=== PATIENT | male | born 1950 | race Caucasian/White ===

== ENCOUNTER 2016-08-23 06:03 | Inpatient (IN) ==
--- NOTE | 2016-08-23 06:56 | Electrocardiograph Report ---
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: : 1950 Requested By: Carlos Castellon Order Number: [id number] Reading MD: Martin Clifton DO Measurements Intervals [place] Rate: 91 P: 82 WI: 185 QRS: -43 QRSD: 96 T: 6 QT: 370 QTc: 419 Interpretive Statements SINUS RHYTHM MARKED LEFT AXIS DEVIATION [QRS AXIS < -30] PATTERN CONSISTENT WITH PULMONARY DISEASE MINIMAL VOLTAGE CRITERIA FOR LVH, CONSIDER NORMAL VARIANT [MEETS CRITERIA IN ONE OF: R(aVL), S(V1), R(V5), R(V5/V6)+S(V1)] ST DEVIATION AND MODERATE T-WAVE ABNORMALITY, CONSIDER ANTERIOR ISCHEMIA [-0.1+ mV T WAVE IN V3/V4] Electronically Signed On 08-23-2016 6:55:17 EDT by Martin Clifton DO
[2016-08-23] MEDS ORDERED: Aspirin 81 MG TAB.CHEW PO ONE (07:01)
[2016-08-23] MEDS ORDERED: Nitroglycerin 0.4 MG TAB.SUBL SL PRN (07:01)
[2016-08-23 07:02] LABS: BUN/Creatinine Ratio 12 (6-26); Blood Urea Nitrogen 15 mg/dL (8-26); Carbon Dioxide 21 mEq/L (19-29); Chloride 106 mEq/L (98-109); Glucose 136 mg/dL (70-99); Osmolality,Calculated 293 (280-300); Potassium 4.1 mEq/L (3.5-4.5); Sodium 140 mEq/L (136-145); eGFR For African Americans > 60 (> 60); eGFR For Non-African Americans 56 (> 60)
[2016-08-23 07:10] LABS: Basophils # 0.1 K/mcL (0.0-0.2); Basophils % 0.5 %; Eosinophils # 0.1 K/mcL (0.0-0.6); Eosinophils % 0.6 %; Hematocrit 49.5 % (37.5-50.1); Hemoglobin 16.5 g/dL (12.9-16.9); Immature Granulocytes % 0.8 % (0-4); Lymphocytes # 1.1 K/mcL (0.6-4.6); Lymphocytes % 10.9 %; Mean Corpuscular HGB Conc 33.3 g/dL (31.6-35.5); Mean Platelet Volume 10.8 fL (9.4-12.4); Monocytes # 0.7 K/mcL (0.0-1.3); Monocytes % 6.5 %; Platelet Count 230 K/mcL (140-400); Red Blood Count 5.89 M/mcL (4.19-5.50); Red Cell Distribution Width 14.6 % (11.5-14.5); Segmented Neutrophils % 80.7 %
--- NOTE | 2016-08-23 07:12 | Emergency Department Note ---
Disposition Clinical Impression: NSTEMI (non-ST elevated myocardial infarction), Dyspnea Disposition: Admitted As Inpatient Condition: Good Instructions: Myocardial Infarction (GEN), Chest Pain (ED) Referrals: Linda Gupta CNP [Primary Care Provider] - Forms: ED Satisfaction Letter General Adult HPI - General Chief complaint: ED Shortness of Breath/Dyspnea Stated complaint: SOB, CP Time Seen by Provider: 08/23/16 06:53 Source: patient - History of Present Illness Pain Scale: 0 - Related Data Home Medications Medication Instructions Recorded Confirmed Amoxicillin 875 mg PO BID 08/23/16 08/23/16 Ascorbic Acid/Mv,Min Cmb#18 [Ultra 1,000 mg PO DAILY 08/23/16 08/23/16 Potent-C 1,000 mg Tablet] Aspirin 81 mg PO DAILY 08/23/16 08/23/16 Atenolol [Tenormin] 25 mg PO DAILY 08/23/16 08/23/16 Body Detox 1 tab PO DAILY 08/23/16 08/23/16 Candicid Forte 1 tab PO DAILY 08/23/16 08/23/16 Cephalexin [Keflex] 500 mg PO DAILY 08/23/16 08/23/16 Doxazosin [Cardura] 4 mg PO HS 08/23/16 08/23/16 Fluconazole [Diflucan] 100 mg PO BID 08/23/16 08/23/16 Furosemide [Lasix] 20 mg PO DAILY PRN 08/23/16 08/23/16 Glucosamine/D3/Boswellia Letitia 1 each PO DAILY 08/23/16 08/23/16 [Osteo Bi-Flex Tablet] Guaifenesin/Dm/Pseudoephedrine 1 each PO Q4-6H PRN 08/23/16 08/23/16 [Capmist Dm Tablet] Paracid Forte 1 tab PO DAILY 08/23/16 08/23/16 Triamterene/Hydrochlorothiazid 1 each PO DAILY 08/23/16 08/23/16 [Dyazide 37.5-25 Capsule] Allergies Allergy/AdvReac Type Severity Reaction Status Date / Time Cortisone AdvReac See Verified 08/23/16 06:09 Comments Past Medical History - Past Medical History Medical history: Reports: hypertension Psychiatric history: Reports: no psych history - Social History Smoking Status: Never smoker Alcohol use: Reports: none Drug use: Reports: none Physical Exam - General General appearance: alert Course Vital Signs Temperature 96.5 F L 08/23/16 06:04 Pulse Rate 97 08/23/16 06:04 Respiratory Rate 24 08/23/16 06:04 Blood Pressure 96/50 08/23/16 06:04 O2 Sat by Pulse Oximetry 92 08/23/16 06:04 Temperature 96.5 F L 08/23/16 06:04 Pulse Rate 89 08/23/16 08:34 Respiratory Rate 20 08/23/16 08:34 Blood Pressure 144/97 08/23/16 08:34 O2 Sat by Pulse Oximetry 91 08/23/16 08:34 Oxygen Delivery Oxygen Delivery Nasal Cannula Medical Decision Making - Lab Data Result diagrams: 08/23/16 06:44 08/23/16 06:44 Lab Results 08/23/16 08/23/16 08/23/16 Range/Units 06:30 06:30 06:44 WBC 10.1 (4.3-11.1) K/mcL RBC 5.89 H (4.19-5.50) M/mcL Hgb 16.5 (12.9-16.9) g/dL Hct 49.5 (37.5-50.1) % MCV 84.0 (83.0-100.0) fL MCH 28.0 (28.0-33.3) pg MCHC 33.3 (31.6-35.5) g/dL RDW 14.6 H (11.5-14.5) % Plt Count 230 (140-400) K/mcL MPV 10.8 (9.4-12.4) fL Immature Gran % 0.8 (0-4) % Seg Neutrophils % 80.7 % Lymphocytes % 10.9 % Monocytes % 6.5 % Eosinophils % 0.6 % Basophils % 0.5 % Neutrophils # 8.2 (1.6-8.9) K/mcL Lymphocytes # 1.1 (0.6-4.6) K/mcL Monocytes # 0.7 (0.0-1.3) K/mcL Eosinophils # 0.1 (0.0-0.6) K/mcL Basophils # 0.1 (0.0-0.2) K/mcL Platelet Estimate Normal (Normal) PT 11.7 (9.4-12.1) Seconds INR 1.1 APTT 28.8 (26.0-36.0) Seconds Sodium (136-145) mEq/L Potassium (3.5-4.5) mEq/L Chloride (98-109) mEq/L Carbon Dioxide (19-29) mEq/L BUN (8-26) mg/dL Creatinine (0.72-1.25) mg/dL Est GFR ( Amer) (> 60) Est GFR (Non-Af Amer) (> 60) BUN/Creatinine Ratio (6-26) Glucose (70-99) mg/dL Calculated Osmolality (280-300) Lactic Acid (0.5-2.2) mmol/L Calcium (8.6-10.8) mg/dL Troponin I (0-0.03) ng/mL B-Natriuretic Peptide 423 H (0-100) pg/mL 08/23/16 08/23/16 08/23/16 Range/Units 06:44 06:44 07:40 WBC (4.3-11.1) K/mcL RBC (4.19-5.50) M/mcL Hgb (12.9-16.9) g/dL Hct (37.5-50.1) % MCV (83.0-100.0) fL MCH (28.0-33.3) pg MCHC (31.6-35.5) g/dL RDW (11.5-14.5) % Plt Count (140-400) K/mcL MPV (9.4-12.4) fL Immature Gran % (0-4) % Seg Neutrophils % % Lymphocytes % % Monocytes % % Eosinophils % % Basophils % % Neutrophils # (1.6-8.9) K/mcL Lymphocytes # (0.6-4.6) K/mcL Monocytes # (0.0-1.3) K/mcL Eosinophils # (0.0-0.6) K/mcL Basophils # (0.0-0.2) K/mcL Platelet Estimate (Normal) PT (9.4-12.1) Seconds INR APTT (26.0-36.0) Seconds Sodium 140 (136-145) mEq/L Potassium 4.1 (3.5-4.5) mEq/L Chloride 106 (98-109) mEq/L Carbon Dioxide 21 (19-29) mEq/L BUN 15 (8-26) mg/dL Creatinine 1.28 H (0.72-1.25) mg/dL Est GFR ( Amer) > 60 (> 60) Est GFR (Non-Af Amer) 56 L (> 60) BUN/Creatinine Ratio 12 (6-26) Glucose 136 H (70-99) mg/dL Calculated Osmolality 293 (280-300) Lactic Acid 1.7 (0.5-2.2) mmol/L Calcium 10.0 (8.6-10.8) mg/dL Troponin I 0.71 H* (0-0.03) ng/mL B-Natriuretic Peptide (0-100) pg/mL Critical Care Time Critical Care Time: Yes Total Critical Care Time: 45 Attestation: Patient presented with dyspnea and chest discomfort. CTA indicated multiple PEs with telephone described right heart strain by the radiologist. Standard dose heparin, weight-based, ordered. We will discuss whether the patient is a candidate for TPA with the admitting hospitalist. Patient appears in no acute distress on exam. Attestation Statement - Attestation Attestation: I examined this patient and my medical decision-making was reviewed with the COAT REPAIR INSPECTOR/PA/Advanced Practice Nurse/Resident Physician. I agree with the documented findings, disposition and treatment plan as described except to the extent set forth below. [id number] time provided in conjunction with the physician embroidery assistant Didier Kilgore Patient presents with chest discomfort and dyspnea. He was recently treated for pneumonia. He has no previous history of coronary artery disease. EKG reviewed by me. Patient appears comfortable on exam 17:19: Troponin elevated. Patient states he feels dyspneic when not on oxygen supplementation. CTA chest ordered 09:05: resting comfortably without chest pain. He is not hypoxic or visibly dyspneic. He appears in no acute distress. Although he does have evidence of right heart strain per CT chest read and elevated cardiac biomarker , I am going to withhold thrombolytic therapy unless recommended by the admitting hospitalist 09:14: Dr. Sutherland sepsis admission. Recommends weight-based heparin at this time
--- NOTE | 2016-08-23 07:15 | Emergency Department Note ---
Disposition Clinical Impression: NSTEMI (non-ST elevated myocardial infarction), Pulmonary emboli Disposition: Admitted As Inpatient Condition: Fair Instructions: Myocardial Infarction (GEN), Chest Pain (ED) Referrals: Linda Gupta CNP [Primary Care Provider] - Forms: ED Satisfaction Letter Time of Disposition: 08:24 General Adult HPI - General Chief complaint: ED Shortness of Breath/Dyspnea Stated complaint: SOB, CP Time Seen by Provider: 08/23/16 06:53 Source: patient Mode of arrival: private vehicle Limitations: no limitations Nursing Notes Reviewed: Yes Vital Signs Reviewed: Yes - History of Present Illness HPI Narrative: A very pleasant 65-year-old male presents to the emergency department with complaint of shortness of breath and chest pain. Patient states that he has recently been treated over the last 2-3 weeks for multiple episodes of shortness of breath and when she was diagnosed with pneumonia and placed on amoxicillin and given 2 doses of Rocephin. Patient states that at approximately 2 AM this morning he developed left-sided chest pain which she describes as sharp and tight which radiates into his left arm. He denies any nausea or sweating episodes. Currently complains of no chest pain but does describe some significant shortness of breath. He denies any history of any blood clots. He denies any previous cardiac events. Patient does state a history of high blood pressure but denies any elevated cholesterol. He does state that he was a former smoker approximately 40 years ago. He has not started any new medications besides the antibiotics that he was placed on further treatment of his "pneumonia." Patient does note that he has not had a chest x-ray to confirm this diagnosis of pneumonia. He denies any recent fever , chills, nausea, vomiting or abdominal pain. He has not had any dizziness or lightheadedness. He denies any palpitations. Onset (ago): hour(s) (5) Location: chest Radiation: extremity Pain Scale: 0 Consistency: intermittent, now resolved Improves with: nothing Worsens with: nothing Associated symptoms: Reports: chest pain, shortness of breath Treatments Prior to Arrival: none - Related Data Home Medications Medication Instructions Recorded Confirmed Amoxicillin 875 mg PO BID 08/23/16 08/23/16 Ascorbic Acid/Mv,Min Cmb#18 [Ultra 1,000 mg PO DAILY 08/23/16 08/23/16 Potent-C 1,000 mg Tablet] Aspirin 81 mg PO DAILY 08/23/16 08/23/16 Atenolol [Tenormin] 25 mg PO DAILY 08/23/16 08/23/16 Body Detox 1 tab PO DAILY 08/23/16 08/23/16 Candicid Forte 1 tab PO DAILY 08/23/16 08/23/16 Cephalexin [Keflex] 500 mg PO DAILY 08/23/16 08/23/16 Doxazosin [Cardura] 4 mg PO HS 08/23/16 08/23/16 Fluconazole [Diflucan] 100 mg PO BID 08/23/16 08/23/16 Furosemide [Lasix] 20 mg PO DAILY PRN 08/23/16 08/23/16 Glucosamine/D3/Boswellia Letitia 1 each PO DAILY 08/23/16 08/23/16 [Osteo Bi-Flex Tablet] Guaifenesin/Dm/Pseudoephedrine 1 each PO Q4-6H PRN 08/23/16 08/23/16 [Capmist Dm Tablet] Paracid Forte 1 tab PO DAILY 08/23/16 08/23/16 Triamterene/Hydrochlorothiazid 1 each PO DAILY 08/23/16 08/23/16 [Dyazide 37.5-25 Capsule] Allergies Allergy/AdvReac Type Severity Reaction Status Date / Time Cortisone AdvReac See Verified 08/23/16 06:09 Comments All systems ED: reviewed and negative except as stated. Constitutional: Denies: fever, chills Cardiovascular: Reports: chest pain. Denies: palpitations, dyspnea on exertion Respiratory: Reports: dyspnea. Denies: cough, wheezes Gastrointestinal: Denies: abdominal pain, nausea, vomiting Musculoskeletal: Denies: back pain, neck pain Integumentary: Denies: rash, abrasion, lesions Neurological: Denies: headache Psychiatric: Denies: anxiety, depression, suicidal thoughts, homicidal thoughts Past Medical History - Past Medical History Attestation: Yes The following information was validated with the patient. Source: patient, nursing notes reviewed Medical history: Reports: hypertension Psychiatric history: Reports: no psych history - Social History Smoking Status: Never smoker Alcohol use: Reports: none Drug use: Reports: none Physical Exam - General Limitations: no limitations General appearance: alert, in no apparent distress - Head Head exam: atraumatic, normocephalic, normal inspection - Eye Eye exam: Present: normal appearance, PERRL - Neck Neck exam: Present: normal inspection, full ROM, trachea midline - Chest Chest inspection: Present: normal inspection, symmetric chest wall rise - Respiratory Respiratory exam: Present: normal lung sounds bilaterally. Absent: respiratory distress - Cardiovascular Cardiovascular exam: Present: regular rate, normal rhythm, normal heart sounds. Absent: irregular rhythm, systolic murmur, diastolic murmur - Abdominal Exam Abdominal exam: Present: soft, Non-Tender, normal bowel sounds - Extremities Exam Extremities exam: Present: normal inspection, full ROM. Absent: tenderness, pedal edema - Back Exam Back exam: Present: normal inspection, full ROM. Absent: tenderness - Neurological Exam Neurological exam: Present: alert, oriented X3 - Psychiatric Psychiatric exam: Present: normal affect, normal mood - Skin Skin exam: Present: warm, dry, intact, normal color Course - Reevaluation(s) Reevaluation #1: Patient remains chest pain-free at this time. I did shut off the patient's oxygen and his saturation dropped to 86-87% he does not wear home oxygen. I discussed the case with Dr. Lemon after discovering the patient had an elevated troponin of 0.71. Patient is being sent to CAT scan to do a CTA of his chest to rule out any pulmonary embolus. Plan to admit this patient for N STEMI protocol. Patient verbalized understanding and agreement with plan a care pending his results of this CTA. Time: 08:19 Reevaluation #2: Patient remains chest pain-free. He does continue to have some mild dyspnea. CTA of his chest was positive for segmental and subsegmental pulmonary emboli in all lung lobes. EKG remains unchanged. Hospitalist has been paged for admission. Heparin has been ordered. Dr. Lemon spoke with the Hospitalist, Dr. Sutherland. He he accepts the patient for admission, and does not want any additional anticoagulation besides heparin at this time. Time: 09:21 Vital Signs Temperature 96.5 F L 08/23/16 06:04 Pulse Rate 97 08/23/16 06:04 Respiratory Rate 24 08/23/16 06:04 Blood Pressure 96/50 08/23/16 06:04 O2 Sat by Pulse Oximetry 92 08/23/16 06:04 Temperature 96.5 F L 08/23/16 06:04 Pulse Rate 89 08/23/16 08:34 Respiratory Rate 20 08/23/16 08:34 Blood Pressure 144/97 08/23/16 08:34 O2 Sat by Pulse Oximetry 91 08/23/16 08:34 Oxygen Delivery Oxygen Delivery Nasal Cannula Medical Decision Making - Lab Data Lab results reviewed: Yes I reviewed the patient's lab results. Result diagrams: 08/23/16 06:44 08/23/16 06:44 Lab Results 08/23/16 08/23/16 08/23/16 Range/Units 06:30 06:30 06:44 WBC 10.1 (4.3-11.1) K/mcL RBC 5.89 H (4.19-5.50) M/mcL Hgb 16.5 (12.9-16.9) g/dL Hct 49.5 (37.5-50.1) % MCV 84.0 (83.0-100.0) fL MCH 28.0 (28.0-33.3) pg MCHC 33.3 (31.6-35.5) g/dL RDW 14.6 H (11.5-14.5) % Plt Count 230 (140-400) K/mcL MPV 10.8 (9.4-12.4) fL Immature Gran % 0.8 (0-4) % Seg Neutrophils % 80.7 % Lymphocytes % 10.9 % Monocytes % 6.5 % Eosinophils % 0.6 % Basophils % 0.5 % Neutrophils # 8.2 (1.6-8.9) K/mcL Lymphocytes # 1.1 (0.6-4.6) K/mcL Monocytes # 0.7 (0.0-1.3) K/mcL Eosinophils # 0.1 (0.0-0.6) K/mcL Basophils # 0.1 (0.0-0.2) K/mcL Platelet Estimate Normal (Normal) PT 11.7 (9.4-12.1) Seconds INR 1.1 APTT 28.8 (26.0-36.0) Seconds Sodium (136-145) mEq/L Potassium (3.5-4.5) mEq/L Chloride (98-109) mEq/L Carbon Dioxide (19-29) mEq/L BUN (8-26) mg/dL Creatinine (0.72-1.25) mg/dL Est GFR ( Amer) (> 60) Est GFR (Non-Af Amer) (> 60) BUN/Creatinine Ratio (6-26) Glucose (70-99) mg/dL Calculated Osmolality (280-300) Lactic Acid (0.5-2.2) mmol/L Calcium (8.6-10.8) mg/dL Troponin I (0-0.03) ng/mL B-Natriuretic Peptide 423 H (0-100) pg/mL 08/23/16 08/23/16 08/23/16 Range/Units 06:44 06:44 07:40 WBC (4.3-11.1) K/mcL RBC (4.19-5.50) M/mcL Hgb (12.9-16.9) g/dL Hct (37.5-50.1) % MCV (83.0-100.0) fL MCH (28.0-33.3) pg MCHC (31.6-35.5) g/dL RDW (11.5-14.5) % Plt Count (140-400) K/mcL MPV (9.4-12.4) fL Immature Gran % (0-4) % Seg Neutrophils % % Lymphocytes % % Monocytes % % Eosinophils % % Basophils % % Neutrophils # (1.6-8.9) K/mcL Lymphocytes # (0.6-4.6) K/mcL Monocytes # (0.0-1.3) K/mcL Eosinophils # (0.0-0.6) K/mcL Basophils # (0.0-0.2) K/mcL Platelet Estimate (Normal) PT (9.4-12.1) Seconds INR APTT (26.0-36.0) Seconds Sodium 140 (136-145) mEq/L Potassium 4.1 (3.5-4.5) mEq/L Chloride 106 (98-109) mEq/L Carbon Dioxide 21 (19-29) mEq/L BUN 15 (8-26) mg/dL Creatinine 1.28 H (0.72-1.25) mg/dL Est GFR ( Amer) > 60 (> 60) Est GFR (Non-Af Amer) 56 L (> 60) BUN/Creatinine Ratio 12 (6-26) Glucose 136 H (70-99) mg/dL Calculated Osmolality 293 (280-300) Lactic Acid 1.7 (0.5-2.2) mmol/L Calcium 10.0 (8.6-10.8) mg/dL Troponin I 0.71 H* (0-0.03) ng/mL B-Natriuretic Peptide (0-100) pg/mL - Radiology Data Radiology results reviewed: Yes I reviewed the patient's radiology results. - EKG Data EKG #1 EKG attestation: Yes I reviewed and interpreted this EKG. EKG shows normal: sinus rhythm Rate: normal Rhythm: NSR [place]/QRS: normal When compared to previous EKG there are: previous EKG unavailable
[2016-08-23 07:21] LABS: INR 1.1; Prothrombin Time 11.7 Seconds (9.4-12.1)
[2016-08-23 07:23] LABS: Activated Partial Thrombo Time 28.8 Seconds (26.0-36.0)
[2016-08-23 07:42] LABS: Neutrophils # 8.2 K/mcL (1.6-8.9); Platelet Estimate Normal (Normal)
[2016-08-23] MEDS: Heparin 25,000 UNIT/500 ML D5W 25,000 UNIT/500 ML MLS IVC SCH (09:05)
[2016-08-23] MEDS ORDERED: Naloxone 0.4 MG/ML INJ IVP PRN (11:05)
[2016-08-23] MEDS ORDERED: *HR* HYDROcodone/Acet 5/325 mg TABLET PO PRN (11:06)
[2016-08-23] MEDS ORDERED: Acetaminophen 325 MG TABLET PO PRN (11:06)
[2016-08-23] MEDS ORDERED: Ondansetron 4 MG/2 ML VIAL IVP PRN (11:06)
--- NOTE | 2016-08-23 11:24 | Internal Med History&Physical ---
Date of Encounter: 08/23/16 Time of Encounter: 11:00 Assessment and Plan (1) Pulmonary emboli Current visit: Yes Status: Acute 1 patient has been experiencing shortness of breath and chest pain. CTA revealed segmental and subsegmental pulmonary emboli in all lung lobes. EKG indicative of right ventricular heart strain. Patient does have a history of sitting for long hours which could be the provoking factor. Patient initiated on heparin drip in the ER. We will continue with heparin drip 2 troponin elevated 0. 71 suspect related to demand ischemia we will continue to cycle troponins 3 Will obtain cardiac echo 4 upon discharge patient will need to be converted to oral anticoagulants. 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 5 continue cardiac monitoring 6 continue oxygen titrated to maintain SPO2 greater than 92%-weaned off Qualifiers: Pulmonary embolism type: other Chronicity: acute Acute cor pulmonale presence: with acute cor pulmonale Qualified Code(s): I26.09 - Other pulmonary embolism with acute cor pulmonale (2) Elevated troponin Current visit: Yes Status: Acute 1 initial troponin 0.71 suspect related to demand ischemia we will continue cycle troponins 2continue with heparin drip 3 continuous cardiac monitoring (3) Hypertension Current visit: Yes Status: Acute 1 patient has history of hypertension presently controlled we will continue with home medications except for diuretics patient's creatinine slightly elevated at 1.28. We will recheck and resume once back to baseline. Qualifiers: Hypertension type: essential hypertension Qualified Code(s): I10 - Essential (primary) hypertension Internal Medicine - H&P: HPI Chief complaint: SOB Admitted From: Emergency Dept History of present illness: Mr. Barnard is a 65 year old male past medical history of hypertension who presented to the emergency department with implants of increasing shortness of breath as well as chest pain. She has been experiencing shortness of breath off and on since May. He see a physician several times and was recently seen by PCP last week diagnosed with pneumonia and was placed on Keflex. Patient denies any cough sputum production chills nausea vomiting diarrhea sick contacts recent travel. He does admit to low-grade fever which is subjective. Patient was a former smoker quit 40 years ago. He is not on any home oxygen and denies any diagnosis of COPD. He denies any dizziness lightheadedness or palpitations. According to patient approximate 6 AM this morning he developed left-sided chest pain which she described as sharp and tight he states that it did not radiate to his left arm however his left arm became numb. He continued to experience shortness of breath. He states symptoms were aggravated by exertion relieved with rest. He presented to the ER for evaluation. According ER records patient's troponin was 0.71 creatinine was 1.28 lactate 1.7 BNP 423. CTA was obtained which was positive for segmental and subsegmental pulmonary emboli in all lung lobes. Patient was initiated on heparin per ER physician. He has been admitted for further workup and evaluation. Presently patient denies any chest pain he is slightly short of breath with exertion. Lung sounds are clear heart sounds S1-S2 no rubs gallops murmurs clicks are noted. 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 He states that he gets up approximately every 4 hours. He denies any leg pain /swelling. No swelling or tenderness noted to legs bilaterally Homans signs negative. EKG does reveal right ventricular strain Presently patient appears to be hemodynamically stable. I reviewed this case with Dr. Sutherland who agrees with plan. Past Med Surg Social Fam HX - Past Medical History Medical history: hypertension Psychiatric history: no psych history - Social History Smoking Status: Never smoker Smokeless Tobacco Status: No Alcohol use: none Drug use: none - Family History Mother Living Status: Cause of : Lung cancer Hx Family Cancer: Yes Father Living Status: Cause of : Lung cancer Hx Family Cancer: Yes Brother Living Status: Still Living Hx Family Cardiac Disorders: Yes (Heart disease) Hx Family Endocrine Disorder: Yes (Diabetes) Internal Medicine - H&P: Meds Amoxicillin 875 mg PO BID 08/23/16 [History] Ascorbic Acid/Mv,Min Cmb#18 [Ultra Potent-C 1,000 mg Tablet] 1,000 mg PO DAILY 08/23/16 [History] Aspirin 81 mg PO DAILY 08/23/16 [History] Atenolol [Tenormin] 25 mg PO DAILY 08/23/16 [History] Body Detox 1 tab PO DAILY 08/23/16 [History] Candicid Forte 1 tab PO DAILY 08/23/16 [History] Cephalexin [Keflex] 500 mg PO DAILY 08/23/16 [History] Doxazosin [Cardura] 4 mg PO HS 08/23/16 [History] Fluconazole [Diflucan] 100 mg PO BID 08/23/16 [History] Furosemide [Lasix] 20 mg PO DAILY PRN 08/23/16 [History] Glucosamine/D3/Boswellia Letitia [Osteo Bi-Flex Tablet] 1 each PO DAILY 08/23/16 [ History] Guaifenesin/Dm/Pseudoephedrine [Capmist Dm Tablet] 1 each PO Q4-6H PRN 08/23/16 [History] Paracid Forte 1 tab PO DAILY 08/23/16 [History] Triamterene/Hydrochlorothiazid [Dyazide 37.5-25 Capsule] 1 each PO DAILY [History] Allergies Cortisone Adverse Reaction (Verified 08/23/16 06:09) See Comments All Systems PM: A 10-system review of systems was performed and is negative for pertinent findings except as documented above in the HPI. - Constitutional Constitutional: fever(s), weakness - EENT Eyes: no change in vision, no discharge, no pain, no photophobia Nose, mouth and throat: no dysphagia, no nasal discharge, no neck pain, no sore throat - Cardiovascular Cardiovascular ROS IM: chest pain, dyspnea on exertion, no diaphoresis, no dyspnea, no lightheadedness, no palpitations, no syncope - Respiratory Respiratory: dyspnea - Gastrointestinal Gastrointestinal: no abdominal pain, no diarrhea, no hematemesis, no hematochezia, no melena, no nausea, no vomiting - Musculoskeletal Musculoskeletal ROS IM: no numbness, no tingling - Integumentary Integumentary IM: no rash, no unusual bruising - Neurological Neurological ROS: no confusion, no convulsions, no focal weakness, no numbness, no tingling, no tremor(s) - Hematologic/Lymphatic Hematologic/Lymphatic: no easy bruising - Constitutional Vitals: Temp Pulse Resp BP Pulse Ox 97.9 F 87 24 139/71 92 08/23/16 10:29 08/23/16 10:29 08/23/16 10:29 08/23/16 10:29 08/23/16 10:29 General appearance: Present: A&O X 2, morbidly obese - Head Head exam: Present: atraumatic, normocephalic - Eye Eye exam: Present: PERRL, conjuntiva pink, sclera anicteric Pupils: Present: PERRL - Neck Neck exam general surgery: Present: supple, trachea midline. Absent: lymphadenopathy - Respiratory Respiratory exam: Present: CTAB. Absent: accessory muscle use, rales, rhonchi, wheezes - Cardiovascular Cardiovascular exam: Present: RRR, +S1, +S2. Absent: diastolic murmur, gallop, rubs, systolic murmur - GI/Abdominal GI/Abdominal exam: Present: normal bowel sounds, soft, no peritoneal signs. Absent: distended, tenderness - Extremities Exam Extremities exam: Present: warm, radial pulses palpable and symetrical. Absent : calf tenderness, cyanotic, pedal edema - Neurological Exam Neurological exam: Present: CN II-XII intact, oriented X3, no focal deficits. Absent: pronater drift, facial droop, speech deficit - Skin Skin exam: Present: dry, intact Internal Med - H&P Results - Labs CBC & Chem 7: 08/23/16 13:17 08/23/16 06:44 - EKG Data EKG shows normal: sinus rhythm - EKG Data Prior EKG available for review: no EKG comments: 08/23/16 11:27 Left axis deviation with T-wave inversion to 3 aVF V1 V2 V3 as well as clockwise rotation V6. Reviewed this EKG with Dr. Sutherland - Diagnostic Studies Other Images Additional comments: Chest X-Ray 08/23/16 06:09 IMPRESSION: No acute cardiopulmonary disease. D/ / 08/23/2016 07:17:45 Wili Chiang MD / adrienne Interpreting Provider: Wili Chiang MD Chest CTA 08/23/16 07:19 IMPRESSION: Acute segmental and subsegmental pulmonary artery emboli to all lobes. Right heart strain. Fatty liver. RECOMMENDATIONS: Findings were discussed with Dr. Dr. Lemon 8:43 a.m. August 23, 2016 D/ / Bret Harris MD / Bret Harris MD Interpreting Provider: Bret Harris MD
--- NOTE | 2016-08-23 12:22 | Event Note ---
Date of Encounter: 08/23/16 Time of Encounter: 12:19 Patient seen and examined with nurse practitioner. 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 shortness of breath has been progressive to the point for a short of breath arrests so presented to our emergency room for further evaluation. He was found to have Bilateral pulmonary embolism. This is considered a provoked pulmonary embolism. I have advised him to find a different job. Recommend at least 3-month-old anticoagulation unless he does not change his job. This is also considered a submassive pulmonary embolism with elevated troponin and evidence of right heart strain on EKG and CT angiogram. He is now requiring 2 L of oxygen. Will check oxygen requirement prior to discharge. Hemodynamically stable. emu farm worker to see patient to decide on choice of anticoagulants
[2016-08-23 13:56] LABS: Hematocrit 45.5 % (37.5-50.1); Mean Corpuscular Hemoglobin 27.9 pg (28.0-33.3); Mean Corpuscular Volume 84.6 fL (83.0-100.0); Mean Platelet Volume 10.6 fL (9.4-12.4); Platelet Count 233 K/mcL (140-400); Red Blood Count 5.38 M/mcL (4.19-5.50); Red Cell Distribution Width 14.6 % (11.5-14.5)
[2016-08-23 14:01] LABS: INR 1.2; Prothrombin Time 12.8 Seconds (9.4-12.1)
[2016-08-23 14:06] LABS: Activated Partial Thrombo Time 47.6 Seconds (26.0-36.0)
[2016-08-23] MEDS ORDERED: *HR* Heparin 5,000 UNIT/ML VIAL IVP PRN ×2 (15:27)
[2016-08-24 02:35] LABS: Basophils % 0.4 %; Eosinophils # 0.1 K/mcL (0.0-0.6); Eosinophils % 1.1 %; Hematocrit 46.4 % (37.5-50.1); Immature Granulocytes % 0.3 % (0-4); Lymphocytes # 1.4 K/mcL (0.6-4.6); Lymphocytes % 15.3 %; Mean Corpuscular HGB Conc 32.3 g/dL (31.6-35.5); Mean Corpuscular Hemoglobin 27.4 pg (28.0-33.3); Mean Corpuscular Volume 84.7 fL (83.0-100.0); Monocytes # 0.7 K/mcL (0.0-1.3); Monocytes % 7.5 %; Neutrophils # 6.8 K/mcL (1.6-8.9); Platelet Count 248 K/mcL (140-400); Red Blood Count 5.48 M/mcL (4.19-5.50); Red Cell Distribution Width 14.5 % (11.5-14.5); Segmented Neutrophils % 75.4 %
[2016-08-24 02:51] LABS: BUN/Creatinine Ratio 14 (6-26); Blood Urea Nitrogen 17 mg/dL (8-26); Calcium 9.6 mg/dL (8.6-10.8); Carbon Dioxide 23 mEq/L (19-29); Chloride 105 mEq/L (98-109); Glucose 117 mg/dL (70-99); Osmolality,Calculated 293 (280-300); Potassium 3.5 mEq/L (3.5-4.5); Sodium 140 mEq/L (136-145); eGFR For African Americans > 60 (> 60); eGFR For Non-African Americans > 60 (> 60)
[2016-08-24] MEDS: Heparin 25,000 UNIT/500 ML D5W 25,000 UNIT/500 ML MLS IVC SCH ×3 (04:11→22:15)
[2016-08-24] MEDS: Aspirin 81 MG TAB.CHEW PO SCH (08:06)
[2016-08-24] MEDS ORDERED: Famotidine 20 MG TABLET PO SCH (09:00)
--- NOTE | 2016-08-24 11:09 | Internal Med Progress Note ---
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 Continue anticoagulation with IV heparin drip, start Coumadin tonight. Gallardo check for new or oral anticoagulants done, noted to be expensive for patient. Continue supplemental oxygen, home oxygen evaluation prior to discharge. Echocardiogram reviewed, shows preserved ejection fraction, mild left ventricular diastolic dysfunction, biatrial dilation, mild right ventricular dilation. Supportive care. Check bilateral lower extremity venous Dopplers. High risk for complications. Will send hypercoagulation panel- protein C and protein S activity, lupus anticoagulant, anticardiolipin antibodies, factor V Leyden. Patient will need hematology follow-up as outpatient. Qualifiers: Pulmonary embolism type: other Chronicity: acute Acute cor pulmonale presence: without acute cor pulmonale Qualified Code(s): I26.99 - Other pulmonary embolism without acute cor pulmonale (2) Elevated troponin Current Visit: Yes Status: Acute Assessment and plan: Likely secondary to right ventricular strain due to bilateral pulmonary embolism. Serum troponins noted to be trending down at this time. Continue telemetry monitoring. Echocardiogram report as above. (3) Hypertension Current Visit: Yes Status: Chronic Assessment and plan: Blood pressure noted to be well controlled. Continue home medications. Qualifiers: Hypertension type: essential hypertension Qualified Code(s): I10 - Essential (primary) hypertension - Subjective Interval history: Improving shortness of breath; no chest pain, palpitations, orthopnea or leg swelling; - Constitutional Vitals: Temp Pulse Resp BP Pulse Ox 97.4 F L 84 18 144/91 95 08/24/16 08:07 08/24/16 08:07 08/24/16 08:07 08/24/16 08:07 08/24/16 08:07 General appearance: Present: A&O X 3, morbidly obese, answers questions appropriately - Respiratory Respiratory exam: Present: CTAB. Absent: accessory muscle use, rales, rhonchi, wheezes - Cardiovascular Cardiovascular exam: Present: RRR, +S1, +S2. Absent: diastolic murmur, gallop, rubs, systolic murmur - GI/Abdominal GI/Abdominal exam: Present: normal bowel sounds, soft (obese), no peritoneal signs. Absent: distended, tenderness - Extremities Exam Extremities exam: Present: full ROM, pedal edema (trace B/L), warm, radial pulses palpable and symetrical. Absent: calf tenderness, cyanotic - Neurological Exam Neurological exam: Present: CN II-XII intact, oriented X3, no focal deficits. Absent: pronater drift, facial droop, speech deficit Internal Medicine: Result - Labs CBC & Chem 7: 08/24/16 01:20 08/24/16 01:20 Labs: Short CBC 08/23/16 08/24/16 Range/Units 13:17 01:20 WBC 9.2 9.0 (4.3-11.1) K/mcL Hgb 15.0 D 15.0 (12.9-16.9) g/dL Hct 45.5 46.4 (37.5-50.1) % Plt Count 233 248 (140-400) K/mcL Neutrophils # 6.8 (1.6-8.9) K/mcL BMP 08/24/16 01:20 Sodium 140 Potassium 3.5 Chloride 105 Carbon Dioxide 23 BUN 17 Creatinine 1.19 Glucose 117 H Calcium 9.6 Cardiac Enzymes 08/23/16 08/23/16 Range/Units 13:17 19:30 Troponin I 0.55 H* 0.49 H* (0-0.03) ng/mL - ABG Interpretation ABG results: PT/INR, D-dimer PT 12.8 Seconds (9.4-12.1) H 08/23/16 13:17 Consult Discharge Plan - Plan Referrals: Linda Gupta APPLE TURNER [Primary Care Provider] - (Patients office is a [facility] practice that does not make appointments. Walk in visits only. Patient will be instructed to follow up with PCP within 5-7 days of discharge.)
--- NOTE | 2016-08-24 11:31 | ECHO - Doppler Report ---
Echocardiogram Name: Alejandro Barnard Date of Study: 08/23/2016 Date: 1950 Ht: 71.0 in Medical Record#: [id number] Age: 65 Wt: 300.0 lb Gender: Male BSA: 2.51 Order #: [id number] Location: [facility] Room #: 2A32 Reading Physician: Jaxson Beaulieu DO, FELTON INIGUEZ Lawnmower Repair Mechanic: Daniella Chaparro Ordering Physician: Eileen Cancino CNP Primary Physician: Linda Gupta CNP Indications: RVH Impressions: Technically sub-optimal due to body habitus. LVEF 60%. Normal LV chamber size and function. Mild left ventricular diastolic dysfunction. Difficult to accurately measure LV wall thickness, but there appeared to be severe concentric hypertrophy. Grossly, the right ventricle appeared mildly dilated with near normal function. RV thickness difficult to accurately quantify due to poor image quality, but did appear to be thickened. Moderately dilated left atrium. Moderately dilated right atrium. Mild pulmonary hypertension. No significant valvular dysfunction. Left Ventricular Wall Motion: Rest Echo Findings All wall segments showed normal motion. Findings: Study Quality * Technically sub-optimal due to body habitus. ECG Findings * Normal sinus rhythm. Left Ventricle * LVEF 60%. * Normal LV chamber size and function. * Mild left ventricular diastolic dysfunction. * Difficult to accurately measure LV wall thickness, but there appeared to be severe concentric hypertrophy. Right Ventricle * Grossly, the right ventricle appeared mildly dilated with near normal function. RV thickness difficult to accurately quantify due to poor image quality, but did appear to be thickened. Left Atrium * Moderately dilated left atrium. Right Atrium * Moderately dilated right atrium. Interatrial Septum * Interatrial septum not well evaluated. Aortic Valve * Trileaflet aortic valve. * Mildly calcified aortic valve leaflets. * No aortic regurgitation. * No aortic stenosis. Mitral Valve * Normal mitral valve structure and function. * No mitral stenosis. * No mitral regurgitation. Tricuspid Valve * Normal tricuspid valve structure and function. * Trace tricuspid regurgitation. * Mild pulmonary hypertension. Pulmonic Valve * Pulmonic valve not well visualized. * No pulmonic regurgitation. Aorta * Normally sized aortic root. Pericardium * The pericardium appears normal. IVC * Normal IVC dimensions and inspiratory collapse. Pulmonary Artery * Normal visualized portions of the main pulmonary artery. History Hypertension Rheumatic Fever Years 10 Packs 1 Family History of CAD Measurements: BP: 145/ 92 2D Normal Values RVIDd: 3.90 cm <2.7 cm IVSd: 2.00 cm 0.6 - 1.0 cm LVIDd: 2.10 cm 3.7 - 5.6 cm LVPWd: 2.00 cm 0.6 - 1.1 cm LVIDs: 1.40 cm 1.5 - 3.6 cm AO: 3.20 cm < 4.0 cm LA: 4.70 cm 2.0 - 4.0cm %FS: 33.30 cm >25 % LA volume: 79 Mitral Valve Peak E:.48 m/sec Peak A:.70 m/sec E/A Ratio:0.7 Peak E' Lat Zaid:8.58 cm/s Peak E' Med Zaid:6.14 cm/s E/E' Lat Ratio:5.6 E/E' Med Ratio:7.8 Tricuspid Valve TV Regurg Peak Grad: 43.00mmHg TV Regurg Peak Zaid: 3.28m/sec Updated by Jaxson Beaulieu DO, FACLj, LARISA YA on 08/24/2016 11:23:46 AM electronically signed on 08/24/2016 11:25:09 AM with status of Final Wall Motion Truong: 1=Normal, 2=Hypokinesis, 3=Akinesis, 4=Dyskinesis, 5=Aneurysmal, 6=Hyperkinetic, X=Not Visualized (Blank)=Missing
[2016-08-24] MEDS: Famotidine 20 MG TABLET PO SCH (17:15)
[2016-08-24] MEDS ORDERED: *HR* Warfarin 5 MG TABLET PO SCH (18:00)
[2016-08-25 03:44] LABS: Basophils % 0.5 %; Eosinophils # 0.2 K/mcL (0.0-0.6); Hematocrit 42.2 % (37.5-50.1); Hemoglobin 13.8 g/dL (12.9-16.9); Immature Granulocytes % 0.2 % (0-4); Lymphocytes # 1.7 K/mcL (0.6-4.6); Lymphocytes % 21.3 %; Mean Corpuscular HGB Conc 32.7 g/dL (31.6-35.5); Mean Corpuscular Hemoglobin 27.8 pg (28.0-33.3); Mean Corpuscular Volume 85.1 fL (83.0-100.0); Mean Platelet Volume 10.6 fL (9.4-12.4); Monocytes # 0.6 K/mcL (0.0-1.3); Monocytes % 7.2 %; Neutrophils # 5.5 K/mcL (1.6-8.9); Platelet Count 227 K/mcL (140-400); Red Blood Count 4.96 M/mcL (4.19-5.50); Red Cell Distribution Width 14.6 % (11.5-14.5); Segmented Neutrophils % 67.8 %
[2016-08-25 04:21] LABS: INR 1.1; Prothrombin Time 12.4 Seconds (9.4-12.1)
[2016-08-25] MEDS: Famotidine 20 MG TABLET PO SCH ×2 (07:34→16:32)
[2016-08-25] MEDS: Aspirin 81 MG TAB.CHEW PO SCH (07:34)
--- NOTE | 2016-08-25 13:30 | Discharge Summary ---
Date of Encounter: 08/25/16 Time of Encounter: 10:00 - Discharge Diagnosis (1) Pulmonary emboli Priority: Primary Status: Acute Qualifiers: Pulmonary embolism type: other Chronicity: acute Acute cor pulmonale presence: without acute cor pulmonale Qualified Code(s): I26.99 - Other pulmonary embolism without acute cor pulmonale (2) Elevated troponin Priority: Primary Status: Acute (3) Hypertension Priority: Secondary Status: Chronic Qualifiers: Hypertension type: essential hypertension Qualified Code(s): I10 - Essential (primary) hypertension (4) Atrial fibrillation Priority: Primary Status: Acute Qualifiers: Atrial fibrillation type: paroxysmal Qualified Code(s): I48.0 - Paroxysmal atrial fibrillation - Discharge Medications Prescriptions: Rivaroxaban [Xarelto] 15 mg PO BID 21 Days Rivaroxaban [Xarelto] 20 mg PO DAILY 30 Days Home Medications: Ascorbic Acid/Mv,Min Cmb#18 [Ultra Potent-C 1,000 mg Tablet] 1,000 mg PO DAILY 08/23/16 [History] Aspirin 81 mg PO DAILY 08/23/16 [History] Atenolol [Tenormin] 25 mg PO DAILY 08/23/16 [History] Body Detox 1 tab PO DAILY 08/23/16 [History] Candicid Forte 1 tab PO DAILY 08/23/16 [History] Doxazosin [Cardura] 4 mg PO HS 08/23/16 [History] Fluconazole [Diflucan] 100 mg PO BID 08/23/16 [History] Furosemide [Lasix] 20 mg PO DAILY PRN 08/23/16 [History] Glucosamine/D3/Boswellia Letitia [Osteo Bi-Flex Tablet] 1 each PO DAILY 08/23/16 [ History] Guaifenesin/Dm/Pseudoephedrine [Capmist Dm Tablet] 1 each PO Q4-6H PRN 08/23/16 [History] Paracid Forte 1 tab PO DAILY 08/23/16 [History] Triamterene/Hydrochlorothiazid [Dyazide 37.5-25 Capsule] 1 each PO DAILY [History] Rivaroxaban [Xarelto] 15 mg PO BID 21 Days 08/25/16 [Rx] Rivaroxaban [Xarelto] 20 mg PO DAILY 30 Days 08/25/16 [Rx] Allergies/Adverse Reactions: Allergies Cortisone Adverse Reaction (Verified 08/23/16 06:09) See Comments Procedures/tests Complete & Pending: Procedures Performed prior 72 hours Category Date Time Status EKG [ECG 12 lead ECG] [ECG] Routine Y 08/25/16 01:06 Ordered Venous Doppler [EV venous imaging LE BI] Routine Y 08/24/16 11:11 Completed Date of admission: 08/23/16 12:36 Primary care physician: Linda Gupta, Discharging clinician: Pallavi Bob Anticipated date of discharge: 08/25/16 - Patient Status Disposition: Home, Self-Care Condition: Fair Functional capacity at discharge: independent ambulation Overall status at discharge: patient is progressing back to baseline - Discharge Instructions Instructions: Rivaroxaban (By mouth), Myocardial Infarction (DC), Pulmonary Embolism (DC), Chronic Hypertension (DC) Follow Up With: Linda Gupta CNP [Primary Care Provider] - (Patients office is a family [facility] practice that does not make appointments. Walk in visits only. Patient will be instructed to follow up with PCP within 5-7 days of discharge.) Sarah Ayers DO [Partnered Physician] - 09/15/16 1:15 pm (Please follow up as schedule..) Forms: Work/School Release Additional Instructions: F/up with [facility] as scheduled - Diet and Activity Activity: increase activity as tolerated (avoid long distance driving or more than 2-3 hours without break/ambulation) Diet: low fat, low cholesterol, low salt diet Hospital course: Mr. Barnard is a 65 year old male with history of hypertension, was admitted with worsening shortness of breath and noted to have hypoxia. CT angiogram of chest showed bilateral submassive pulmonary emboli. 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 He was started on anticoagulation with IV heparin drip and hypercoagulability panel has been sent , which is to be followed up as outpatient. Bilateral lower extremity venous Doppler showed no evidence of acute DVT. Patient was also noted to have developed new onset of atrial fibrillation while in the hospital, rate controlled. He was continued on his home dose of metoprolol. Echocardiogram was done which showed biatrial dilation, preserved ejection fraction, mild left-ventricular diastolic dysfunction, mild right ventricle dilation and mild pulmonary hypertension. Case was discussed with cardiology who agreed that patient was stable for discharge with outpatient follow-up. Patient is currently being discharged on novel oral anticoagulant, Xarelto after lagos check. Patient received 30 day free trial card for this and is recommended to follow up as outpatient. He was also advised regarding the correlation between his job/sedentary lifestyle and VTE and he verbalized understanding. He is otherwise medically stable for discharge. - Time Spent with Patient Total time spent providing and/or coordinating discharge services: Greater than 30 minutes (50 min) - Constitutional Vitals: Temp Pulse Resp BP Pulse Ox 97.6 F 75 16 122/80 97 08/25/16 12:02 08/25/16 12:02 08/25/16 12:02 08/25/16 12:02 08/25/16 12:02 General appearance: Present: A&O X 3, morbidly obese, answers questions appropriately - Respiratory Respiratory exam: Present: CTAB. Absent: accessory muscle use, rales, rhonchi, wheezes - Cardiovascular Cardiovascular exam: Present: irregular rhythm, +S1, +S2. Absent: diastolic murmur, gallop, rubs, systolic murmur
[2016-08-25 15:00] VITALS: BP 106/72
[2016-08-25] MEDS ORDERED: *HR* Rivaroxaban 15 MG TABLET PO SCH (15:20)
--- NOTE | 2016-08-25 17:38 | Venous Imaging Report ---
LE Venous Duplex Patient Name:Alejandro Barnard Order Number:[id number] Procedure Date:08/24/2016 Date:1950Age:65 yrs Gender:Male Location:[facility] Room #: 2A32 Seaming Machine Operator:Daniella Chaparro Referring MD:Carmen Bob MD silviculture forester:Linda Gupta, TELEPHONE SERVICE ADVISER Reading MD:Austin Lazo MD Primary Indications:Bilateral PE Secondary Indications: Risk Factors Yes/No Anticoagulants Impressions: Bilateral lower extremity: normal superficial and deep exam. Findings Prior Study: No prior study available for comparison. Lower Extremity Venous Duplex Side Vein Compress Spontaneous Flow Augment Diameter (cm) Depth (cm) Right Distal Iliac Normal Yes Phasic Yes Right Common Femoral Normal Yes Phasic Yes Right Superficial Femoral Normal Yes Phasic Yes Right Popliteal Normal Yes Phasic Yes Right Posterior Tibial Normal Yes Phasic Yes Right Peroneal Normal Yes Phasic Yes Right Saphenofemoral [place]unction Normal Yes Phasic Yes Right Great Saphenous Normal Yes Phasic Yes Right Lesser Saphenous Normal Yes Phasic Yes Left Distal Iliac Normal Yes Phasic Yes Left Common Femoral Normal Yes Phasic Yes Left Superficial Femoral Normal Yes Phasic Yes Left Popliteal Normal Yes Phasic Yes Left Posterior Tibial Normal Yes Phasic Yes Left Peroneal Normal Yes Phasic Yes Left Saphenofemoral [place] Normal Yes Phasic Yes Left Great Saphenous Normal Yes Phasic Yes Left Lesser Saphenous Normal Yes Phasic Yes Updated by Austin Lazo MD on 08/25/2016 5:32:05 PM electronically signed on 08/25/2016 5:32:56 PM with status of Final
--- NOTE | 2016-08-26 17:37 | Electrocardiograph Report ---
[place] [id number] Test Date: 2016-08-25 Pat Name: Alejandro Barnard Department: 112 Room: 2A Gender: M Final Assembly Worker: RADHA : 1950 Requested By: Gil Garcia Order Number: [id number] Reading MD: Brenda Restrepo Measurements Intervals [place] Rate: 96 P: OK: 0 QRS: -40 QRSD: 105 T: -2 QT: 404 QTc: 458 Interpretive Statements ATRIAL FIBRILLATION WITH ABERRANT CONDUCTION OR VENTRICULAR PREMATURE COMPLEXES MARKED LEFT AXIS DEVIATION PATTERN CONSISTENT WITH PULMONARY DISEASE Electronically Signed On 08-26-2016 17:36:04 EDT by Brenda Restrepo
[2016-08-26 21:48] LABS: APTT (LE Anticoag) 115 sec (32-48); Diluted Russell Viper Venom 30 sec (33-44); LE APTT D Heparin Neutralized 43 sec (32-48); LE Coag Reptilase Time 17.9 sec (<=21.9); PT (LE-Anticoag) 13.8 sec (12.0-15.5); Thrombin Time >150.0 sec (14.7-19.5)
[2016-08-28 08:57] LABS: Protein C, Functional 179 % (83-168)
[2016-08-28 08:58] LABS: Protein S, Functional 107 % (66-143)
[2016-08-29 07:01] LABS: Antithrombin III, Activity 87 % (76-128)
== END 2016-08-25 17:00 | disposition home or self-care (01) | DRG 175 ==
LOC: EMEROO 06:03 → 2ANU 06:03 → SUATTDRO 12:36
PROVIDERS: ADMIT Hospitalist; ATTEND Internal Medicine